=== PATIENT | female | born 2000 | race Caucasian/White ===

== ENCOUNTER 2022-09-26 08:59 | Emergency (ER) | payer MEDICAID ==
[2022-09-26 09:19] VITALS: BP 149/99
--- NOTE | 2022-09-26 09:54 | XRAY Report ---
PROCEDURE: Chest 1 View X-Ray INDICATIONS: SOA/Cough TECHNIQUE: One view of the chest was acquired. COMPARISON: None. FINDINGS: Surgical changes and devices: None. Lungs and pleura: No pleural effusions or pneumothorax. Lungs are clear. Mediastinum: Mediastinal contours appear normal. Heart size is normal. Bones and chest wall: No suspicious bony lesions. Overlying soft tissues appear unremarkable. IMPRESSION: Normal portable chest. No focal infiltrates are seen. Reviewed by: Palmer Casanova MD on 09/26/2022 8:53 AM [facility] Approved by: Palmer Casanova MD on 09/26/2022 8:53 AM [facility] Station ID: [id number]
[2022-09-26 10:52] LABS: B. PARAPERTUSSIS- RESP PCR PAN NOT DETECTED; B. PERTUSSIS- RESP PCR PANEL NOT DETECTED; C. PNEUMONIAE- RESP PCR PANEL NOT DETECTED; CORONAVIRUS 229E-RESP PCR NOT DETECTED; CORONAVIRUS HKU1-RESP PCR NOT DETECTED; CORONAVIRUS NL63-RESP PCR NOT DETECTED; CORONAVIRUS OC43-RESP PCR NOT DETECTED; HUMAN METAPNEUMOVIRUS NOT DETECTED; INFLUENZA A H3- RESP PCR PANEL DETECTED; INFLUENZA B - RESP PCR PANEL NOT DETECTED; M. PNEUMONIAE- RESP PCR PANEL NOT DETECTED; PARAINFLUENZA VIRUS 1 NOT DETECTED; PARAINFLUENZA VIRUS 2 NOT DETECTED; PARAINFLUENZA VIRUS 3 NOT DETECTED; PARAINFLUENZA VIRUS 4 NOT DETECTED; RHINOVIRUS/ENTEROVIRUS NOT DETECTED; RSV- RESP PCR PANEL NOT DETECTED; SARS-CoV-2 -RESP PCR PANEL NOT DETECTED
--- NOTE | 2022-09-26 11:29 | ED Physician Documentation ---
History of Present Illness - Stated complaint Stated Complaint: SOA, FLU SYMPTOMS - Chief complaint Chief Complaint: Resp - History obtained from History obtained from: Patient - Additonal information Additional information: This is a generally healthy 21-year-old female who presents with 5 days of cough, chest congestion, body aches, fever. She has had no respiratory distress, no chest pain or difficulty breathing, no abdominal pain, no vomiting or diarrhea, no urinary symptoms. She has been using [id number] Tylenol and ibuprofen with some relief but was concerned about the chest congestion. She also needs a note excusing her from work from the days missed. Review of Systems Ten Systems: 10 systems reviewed and negative (Except as noted in HPI) PD PAST MEDICAL HISTORY - Past Medical History Past Medical History: No - Present Medications Home Medications: Ambulatory Orders Medication Instructions Recorded Confirmed No Known Home Medications 09/26/22 09/26/22 - Allergies Allergies/Adverse Reactions: Allergies Allergy/AdvReac Type Severity Reaction Status Date / Time No Known Drug Allergies Allergy Verified 09/26/22 09:20 PD ED PE NORMAL - Vitals Vital signs reviewed: Yes - General General: Alert and oriented X 3, No acute distress, Well developed/nourished - HEENT HEENT: Atraumatic, Ears normal, Moist mucous membranes, Pharynx benign - Neck Neck: Supple, no meningeal sign, No JVD - Cardiac Cardiac: RRR, No murmur, No gallop, No rub - Respiratory Respiratory: No respiratory distress, Clear bilaterally - Abdomen Abdomen: Normal bowel sounds, Soft, Non tender, Non distended - Derm Derm: Normal color, Warm and dry, No rash - Extremities Extremities: No deformity, No edema - Neuro Neuro: Alert and oriented X 3 Eye Opening: Spontaneous Motor: Obeys Commands Verbal: Oriented GCS Score: 15 Results - Vitals Vitals: Vital Signs - 24 hr 09/26/22 09:16 Temperature 36.7 C Heart Rate 80 Respiratory 14 Rate Blood Pressure 149/99 H O2 Saturation 100 Oxygen O2 Source Room air - Labs Labs: Laboratory Tests 09/26/22 09:21 Nasal Adenovirus (PCR) NOT DETECTED Nasal B. parapertussis DNA (PCR) NOT DETECTED Nasal Coronavir 229E PCR NOT DETECTED Nasal Coronavir HKU1 PCR NOT DETECTED Nasal Coronavir NL63 PCR NOT DETECTED Nasal Coronavir OC43 PCR NOT DETECTED Nasal Enterovir/Rhinovir PCR NOT DETECTED Nasal Influenza A H3 PCR DETECTED A Nasal Influenza B PCR NOT DETECTED Nasal Parainfluen 1 PCR NOT DETECTED Nasal Parainfluen 2 PCR NOT DETECTED Nasal Parainfluen 3 PCR NOT DETECTED Nasal Parainfluen 4 PCR NOT DETECTED Nasal RSV (PCR) NOT DETECTED Nasal B.pertussis DNA PCR NOT DETECTED Nasal C.pneumoniae (PCR) NOT DETECTED Chuy Human Metapneumo PCR NOT DETECTED Nasal M.pneumoniae (PCR) NOT DETECTED Nasal SARS-CoV-2 (PCR) NOT DETECTED PD MEDICAL DECISION MAKING - ED course Complexity details: reviewed results, re-evaluated patient, considered differential, d/w patient ED course: This is a 21-year-old female who presents with the above symptoms as per HPI. She is well-appearing, with stable vital signs, oxygenating well on room air. We obtained a viral panel and she is positive for influenza A which is likely the cause of her symptoms. Patient requires no antibiotics at this time and supportive measures were discussed at home including continuing to get plenty of rest, stay well-hydrated, using ibuprofen or Tylenol for body aches or fever, and [id number] cough medications were reviewed. Patient may return to work when she is fever free for greater than 24 hours and symptoms are improving. She was advised on return precautions. Departure - Departure Disposition: 01 Home, Self Care Clinical Impression: Influenza A Condition: Good Instructions: ED Viral Syndrome Comments: As we discussed, you have the flu. The flu typically causes you to feel unwell for about a week including body aches, nausea, cough, sore throat, fever. Treatment is supportive meaning you need to get plenty of rest, drink plenty of fluids and you can take ibuprofen and Tylenol for body aches and fever as well as [id number] cough medication as needed. You should stay home from work and/or school until you are fever free for greater than 24 hours. Forms: Activity restrictions
== END 2022-09-26 12:48 | disposition home or self-care (01) ==
LOC: ED 08:59
DX: J10.1 Influenza due to other identified influenza virus with other respiratory manifestations (principal); Z20.822 Contact with and (suspected) exposure to COVID-19
CPT/HCPCS: 87633; 99282; 99284